=== PATIENT | female | born 2000 | race Caucasian/White ===

== ENCOUNTER 2019-10-18 11:01 | Outpatient (RCR) | payer OTHER, MEDICAID, SELFPAY ==
[2019-10-18 12:45] LABS: Hematocrit 29.6 % (37.0-47.0); Hemoglobin 9.8 g/dL (12.0-15.0)
[2019-10-18 12:57] LABS: Glucose 1 Hour PP 50gm Dose 119 mg/dL
[2019-10-18 13:38] LABS: HIV 1/2 Ab P24 Ag Result Negative (Negative)
[2019-10-19 07:31] LABS: Rapid Plasma Reagin Non-Reactive (NonReactive)
[2019-10-20] MEDS: RHO(D) IMMUNE GLOBULIN 300 MCG SYRINGE IM (16:16)
== END 2020-01-16 23:59 | disposition home or self-care (01) ==
LOC: ANHLAB 11:01
PROVIDERS: Visit Provider Obstetrics & Gynecology
DX: Z36.89 Encounter for other specified antenatal screening (principal); Z29.13 Encounter for prophylactic Rho(D) immune globulin; O36.0990 Maternal care for other rhesus isoimmunization, unspecified trimester, not applicable or unspecified; Z3A.00 Weeks of gestation of pregnancy not specified
CPT/HCPCS: 36415; 82947; 85014; 85018; 86592; 86703; 90384; 96372; G0432; J2790

== ENCOUNTER 2019-12-21 17:04 | Inpatient (IN) | payer OTHER, MEDICAID, SELFPAY ==
[2019-12-21] VITALS (51 sets, daily range): BP systolic 61–138; BP diastolic 25–90; PULSE 92–221; TEMP 36.3–36.9; O2SAT 92–100
[2019-12-21 17:32] LABS: Basophils Percent Auto 0.2 % (0.2-1.2); Eosinophils Absolute Auto 0.1 K/mm3 (0-0.3); Eosinophils Percent Auto 0.5 % (0-4.4); Hematocrit 29.8 % (37.0-47.0); Hemoglobin 9.3 g/dL (12.0-15.0); Immature Granulocyte Absolute 0.06 K/mm3 (0.00-0.031); Immature Granulocyte Percent A 0.6 % (0-0.5); Lymphocytes Absolute Auto 1.29 K/mm3 (0.9-3.2); Lymphocytes Percent Auto 11.9 % (18.3-44.2); Mean Corpuscular HGB Conc 31.2 g/dl (32-36); Mean Corpuscular Hemoglobin 25.3 pg (26-34); Mean Corpuscular Volume 81.2 fl (80-100); Mean Platelet Volume 9.8 fl (7.4-10.4); Monocytes Absolute Auto 0.9 K/mm3 (0.1-0.6); Monocytes Percent Auto 8.4 % (2.6-8.5); Neutrophils Absolute Auto 8.5 K/mm3 (1.3-6.7); Neutrophils Percent Auto 78.4 % (45.5-73.1); Platelet Count Result 293 k/mm3 (150-375); Red Blood Count 3.67 M/mm3 (4.2-5.4); Red Cell Distribution Width 14.6 % (11.5-14.5); White Blood Count 10.9 K/mm3 (4.5-10.0)
[2019-12-21] MEDS: LACTATED RINGERS 1,000 ML 125 ML IV CONT ×3 (17:39→21:19)
[2019-12-21] MEDS: OXYTOCIN 30 UNITS/NS 500 ML 30 UNITS/500 ML BAG 6 UNITS IV CONT (17:40)
--- NOTE | 2019-12-21 17:42 | LDADM ---
This patient, Jeremy Frausto, was admitted to Labor/Delivery/Recovery 107 on 12/21/19 at 17:04. Plans for labor, pain management and were discussed with patient. Patient/family oriented to hospital policies and general routines including ID bracelet, bed and alarms, visiting hours, pain management, procedures, bathroom and other care routines, personal items, smoking policy, room service/diet and guest tray routines, security routines, and visiting hours. Patient/Family are encouraged to report perceived risks to care and to ask questions if they do not understand what they are told or what they should do. See OBIX for further documentation.
--- NOTE | 2019-12-21 19:32 | WPDANESEPP ---
Anes - Eval Pre Procedure Procedure: labor epidural Date/Time: 12/21/19 19:32 Surgeon: Paulette Preop Diagnosis: Labor pain Pre Op Diagnosis: SROM Patient Data Age: 19 Gender: F Height: Weight: Last Vital Signs Temp 36.9 C 12/21/19 17:55 Pulse 117 H 12/21/19 19:31 BP 122/68 12/21/19 19:31 Pulse Ox 98 12/21/19 19:30 Allergies Allergy/AdvReac Type Severity Reaction Status Date / Time No Known Allergies Allergy Unknown Verified 03/14/19 22:45 Home Medications Medication Instructions Recorded Confirmed Type PNV cmb#95-ferrous fumarate-FA 1 tablet PO DAILY 11/26/19 12/21/19 History [] ferrous sulfate [Slow Release Iron] 140 mg PO DAILY 11/26/19 12/21/19 History promethazine 25 mg PO TID PRN 11/26/19 12/21/19 History Laboratory Tests 12/21/19 12/21/19 12/21/19 17:19 17:19 17:19 WBC 10.9 K/mm3 H K/mm3 (4.5-10.0) RBC 3.67 M/mm3 L M/mm3 (4.2-5.4) Hgb 9.3 g/dL L g/dL (12.0-15.0) Hct 29.8 % L % (37.0-47.0) MCV 81.2 fl fl (80-100) MCH 25.3 pg L pg (26-34) MCHC 31.2 g/dl L g/dl (32-36) RDW 14.6 % H % (11.5-14.5) Plt Count 293 k/mm3 k/mm3 (150-375) MPV 9.8 fl fl (7.4-10.4) Immature Gran % (Auto) 0.6 % H % (0-0.5) Neut % (Auto) 78.4 % H % (45.5-73.1) Lymph % (Auto) 11.9 % L % (18.3-44.2) [place]y % (Auto) 8.4 % % (2.6-8.5) Eos % (Auto) 0.5 % % (0-4.4) Baso % (Auto) 0.2 % % (0.2-1.2) Lymph # (Auto) 1.29 K/mm3 K/mm3 (0.9-3.2) [place] # (Auto) 0.9 K/mm3 H K/mm3 (0.1-0.6) Eos # (Auto) 0.1 K/mm3 K/mm3 (0-0.3) Baso # (Auto) 0.0 K/mm3 K/mm3 (0.0-0.1) Abs Immat Gran (auto) 0.06 K/mm3 H K/mm3 (0.00-0.031) Absolute Neuts (auto) 8.5 K/mm3 H K/mm3 (1.3-6.7) Absolute Nucleated RBC 0.0 K/mm3 K/mm3 (0.0-0.012) Nucleated RBC % 0.0 % % (0.0-0.2) RPR Pending Blood Type B Negative Antibody Screen Positive Antibody Identification Pending Antigen Identification Pending PETE, IgG Interpret Pending PETE, Poly Interpret Pending PETE, Complement Interp Pending Patient hx anesthesia problems: none Family hx anesthesia problems: none [facility] Family History Family History (Updated 11/26/19 @ 12:48 by Adis Mondragon RN) Mother Diabetes mellitus Social History Social History Smoking status: Never smoker Substance use: never Gender identity (if verbalized by the patient): Female Spiritual care concerns: No Exam Day of Procedure 12/21/19 19:32
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
[2019-12-22] VITALS (25 sets, daily range): BP systolic 69–186; BP diastolic 43–160; PULSE 92–166; RESP 16–18; TEMP 36.7–37; O2SAT 98–100
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
[2019-12-22] MEDS: PROMETHAZINE HCL 25 MG/ML AMPUL 12.5 MG IV PUSH (01:18)
[2019-12-22] MEDS: OXYTOCIN 30 UNITS/NS 500 ML 30 UNITS/500 ML BAG 125 UNITS IV CONT (01:44)
--- NOTE | 2019-12-22 03:34 | PC.NURSE ---
Patient transferred to post room #292 via wheel chair. Support person present. Oriented to unit, room, information board, rooming in, admission packet and security measures. Patient verbalizes understanding.
[2019-12-22] MEDS: DOCUSATE SODIUM 100 MG CAPSULE PO ×2 (09:46→16:30)
[2019-12-22] MEDS: POLYSACCHARIDE IRON COMPLEX 150 MG CAPSULE PO ×2 (09:47→16:29)
[2019-12-22] MEDS: IBUPROFEN 600 MG TABLET PO ×2 (09:48→20:40)
[2019-12-23 05:19] LABS: Hematocrit 26.8 % (37.0-47.0); Hemoglobin 8.2 g/dL (12.0-15.0)
--- NOTE | 2019-12-23 08:29 | PM.OBPNVD ---
OB - PN: Subj Subjective Date/time seen: 12/23/19 08:29 OB - PN: Obj Data Labs CBC & Chem 7: 12/23/19 05:12 Labs: Laboratory Results - last 24 hr 12/23/19 05:12 Hgb 8.2 L Hct 26.8 L OB - PN A/P Plan day: 1 Plan: discharge home Time Spent With Patient Time: Total time spent is greater than 50% in coordination of care (as documented) at patient's floor/unit and/or counseling patient: Review of Systems Review of Systems: All systems reviewed & are unremarkable except as noted in HPI and below Constitutional: Constitutional: Reports as per HPI Cardiovascular: Cardiovascular: Reports as per HPI Exam Const: General: comfortable Resp: Effort & Inspection: normal respiratory effort Psych: Appearance: grossly normal Affect: normal affect Attitude: cooperative
[2019-12-23 08:30] VITALS: BP 121/86; PULSE 91; RESP 16; TEMP 36.7; O2SAT 100
--- NOTE | 2019-12-23 08:30 | PM.OBDSVD ---
OB - DS: Summary OB Procedures : None OB Procedures Intrapartum: Spontaneous Vag Delivery OB Procedures: : None Time Spent with Patient Time attestation: Total time spent providing and/or coordinating discharge services: Exam Const: General: comfortable Resp: Effort & Inspection: normal respiratory effort DS: Data Data Completed and Pending Labs on day of discharge: Labs from last 24 hours 12/23/19 05:12 Hgb 8.2 L Hct 26.8 L Discharge Plan Discharge Attending physician on discharge: Halima Caldwell Discharging Clinician: Maureen Catalan Patient Disposition: Home, Self-Care Activity: pelvic rest Diet: regular Patient Instructions: Antibiotic Form Stand Alone Forms: General Discharge Information Follow-up/Referrals: Maureen Catalan, SANDOVALM [Certified Nurse Multiple Sclerosis Nurse] - 4 Weeks Discharge Medications: Continued promethazine 25 mg Tablet 25 mg PO TID PRN (Reason: Nausea) RF: 0 ferrous sulfate [Slow Release Iron] 140 mg (45 mg iron) Tablet Extended Release 140 mg PO DAILY RF: 0 PNV cmb#95-ferrous fumarate-FA [] 28 mg iron- 800 mcg Tablet 1 tablet PO DAILY RF: 0 Date of admission: 12/21/19 17:04 Primary Care Provider: UNKNOWN,DOCTOR Admitting Provider: Halima Caldwell Attending physician on admission: Halima Caldwell
[2019-12-23] MEDS: DOCUSATE SODIUM 100 MG CAPSULE PO (08:36)
[2019-12-23] MEDS: POLYSACCHARIDE IRON COMPLEX 150 MG CAPSULE PO (08:36)
--- NOTE | 2019-12-23 08:45 | PC.NURSE ---
Patient viewed the discharge video Mother & Baby Care, The First Two Weeks . Patient was given the opportunity and encouraged to ask questions. Patient verbalized understanding of information shared and has been given the mother/baby guide for home reference.
[2019-12-24 07:39] LABS: Rapid Plasma Reagin Non-Reactive (NonReactive)
[2019-12-24 08:07] VITALS: BP 118/72; PULSE 95; RESP 16; TEMP 36.8; O2SAT 99
== END 2019-12-23 10:15 | disposition home or self-care (01) | DRG 807 ==
LOC: ANHLDR 18:55 → ANHOB2 12-22 03:53
PROVIDERS: Advanced Practice Midwife; Admitting Provider Obstetrics & Gynecology; Visit Provider Obstetrics & Gynecology
DX: O76 Abnormality in fetal heart rate and rhythm complicating labor and delivery (principal); Z37.0 Single live birth; Z3A.39 39 weeks gestation of pregnancy
CPT/HCPCS: 36415; 84112; 85014; 85018; 85025; 86592; 86850; 86880; 86900; 86901; 86902; A9270; J2550; J2590; J7120

== ENCOUNTER 2021-02-04 20:05 | Emergency (ER) | payer OTHER, MEDICAID, SELFPAY ==
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
[2021-02-04 20:07] VITALS: BP 126/88; PULSE 110; RESP 18; TEMP 36.9; O2SAT 100
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
[2021-02-04] MEDS: KETOROLAC 30 MG/ML VIAL (*BKC) IM (21:59)
[2021-02-04 22:55] VITALS: BP 119/74; PULSE 84; RESP 16; O2SAT 98
== END 2021-02-04 22:55 | disposition home or self-care (01) ==
PROVIDERS: Emergency Provider Emergency Medicine; PCP Family Medicine
DX: S29.012A Strain of muscle and tendon of back wall of thorax, initial encounter (principal); S16.1XXA Strain of muscle, fascia and tendon at neck level, initial encounter; M25.561 Pain in right knee; V49.40XA Driver injured in collision with unspecified motor vehicles in traffic accident, initial encounter
CPT/HCPCS: 72040; 72070; 73502; 73562; 81025; 96372; 99284; J1885

== ENCOUNTER 2022-03-16 00:48 | Emergency (ER) | payer OTHER, MEDICAID, SELFPAY ==
[2022-03-16 01:09] VITALS: BP 147/83; PULSE 97; RESP 16; TEMP 36.6; O2SAT 100
[2022-03-16 01:20] LABS: Basophils Absolute Auto 0.1 K/mm3 (0.0-0.1); Basophils Percent Auto 0.6 % (0.2-1.2); Eosinophils Absolute Auto 0.1 K/mm3 (0-0.3); Eosinophils Percent Auto 1.3 % (0-4.4); Hematocrit 43.4 % (37.0-47.0); Hemoglobin 14.5 g/dL (12.0-15.0); Immature Granulocyte Absolute 0.01 K/mm3 (0.00-0.031); Immature Granulocyte Percent A 0.1 % (0-0.5); Lymphocytes Percent Auto 27.7 % (18.3-44.2); Mean Corpuscular HGB Conc 33.4 g/dl (32-36); Mean Corpuscular Hemoglobin 30.5 pg (26-34); Mean Corpuscular Volume 91.4 fl (80-100); Mean Platelet Volume 9.6 fl (7.4-10.4); Monocytes Absolute Auto 0.5 K/mm3 (0.1-0.6); Monocytes Percent Auto 5.8 % (2.6-8.5); Neutrophils Absolute Auto 5.8 K/mm3 (1.3-6.7); Neutrophils Percent Auto 64.5 % (45.5-73.1); Platelet Count Result 304 k/mm3 (150-375); Red Blood Count 4.75 M/mm3 (4.2-5.4)
[2022-03-16 01:33] LABS: Alanine Aminotransferase 22 U/L (6-35); Albumin Level 5.1 g/dL (3.5-5.1); Alkaline Phosphatase 96 U/L (38-126); Anion Gap 9 mmol/L (8-16); Aspartate Amino Transferase 27 U/L (14-36); Bilirubin,Total 0.5 mg/dL (0.2-1.3); Blood Urea Nitrogen 10 mg/dL (7-17); Calcium 9.4 mg/dL (8.4-10.2); Carbon Dioxide 25 mmol/L (22-30); Chloride 105 mmol/L (98-107); Estimated CRCL calculation 111 ml/min; Estimated Glomerular Filt Rate > 60; Glucose 114 mg/dL (65-110); Lipase 62 U/L (23-300); Potassium 3.9 mmol/L (3.4-5.0); Sodium 139 mmol/L (137-145)
[2022-03-16 01:47] VITALS: BP 122/79; PULSE 81; RESP 18; O2SAT 100
[2022-03-16 01:56] LABS: Appearance Urine Clear (Clear); Bilirubin Urine Negative (Negative); Color Urine Yellow (Yellow); Glucose Urine UA Negative (Negative); Ketones Urine Trace mg/dL (Negative); Leukocyte Esterase Ur Negative LEU/UL (Negative); Nitrate Urine Negative (Negative); Protein Urine Negative (Negative); Urobilinogen Urine 0.2 mg/dL (<2.0); pH Urine 6.5 (5.0-9.0)
[2022-03-16 01:57] LABS: Add Urine Microscopic? YES; Blood Urine Trace-Intact (Negative)
--- NOTE | 2022-03-16 01:57 | ED.ABDPAIN ---
HPI - Abdominal Pain General Chief Complaint: Abdominal Pain Stated Complaint: epigastric pain x3 days Time Seen by Provider: 03/16/22 01:47 History of Present Illness HPI narrative: Patient presents with epigastric pain. Reports that pain for 3 days most noted at night. Symptoms will get better with [id number] medications is came to ER for further evaluation. Patient reports currently her symptoms have nearly completely resolved. Denies any nausea or vomiting she denies any diarrhea. She does report a bloating sensation in her abdomen is attempted Gas-X without relief. Denies any urinary symptoms known sick contacts Related Data Home Medications Medication Instructions Recorded Confirmed ferrous sulfate 140 mg (45 mg 140 mg PO DAILY 11/26/19 12/21/19 iron) tablet,extended release (Slow Release Iron) vit no.95-ferrous 1 tablet PO DAILY 11/26/19 12/21/19 fumarate 28 mg-folic acid 800 mcg tablet () promethazine 25 mg tablet 25 mg PO TID PRN Nausea 11/26/19 12/21/19 Allergies Allergy/AdvReac Type Severity Reaction Status Date / Time No Known Allergies Allergy Unknown Verified 03/16/22 01:48 Review of Systems Review of Systems: CONSTITUTIONAL: Denies fever, chills, or sweats. EYES: Denies visual changes, redness, or discharge. ENT: Denies rhinorrhea, congestion, sore throat, or otalgia. CARDIOVASCULAR: Denies chest pain, palpitations, or edema. RESPIRATORY: Denies cough or dyspnea. GASTROINTESTINAL: Patient reports abdominal pain GENITOURINARY: Denies dysuria or hematuria. SKIN: Denies rash or itching. MUSCULOSKELETAL: Denies back pain, joint pain, or myalgia. NEUROLOGIC: Denies headache, numbness, dizziness, or weakness. PSYCHIATRIC: Denies anxiety or depression. All systems reviewed & are unremarkable except as noted in HPI and below PMFSH Past Medical History Medical History (Updated 03/16/22 @ 02:06 by Jeff Gray MD) Patient denies significant medical history Family History Family History Mother Diabetes mellitus Social History Social History Smoking status: Never smoker Substance use: never Gender identity (if verbalized by the patient): Female Spiritual care concerns: No Exam Narrative: GENERAL: Well-appearing, well-nourished, and in no acute distress. HEAD: Normocephalic, atraumatic. EYES: PERRLA and EOMI. ENT: Nares clear, no rhinorrhea or epistaxis. Mucous membranes moist. NECK: Supple. No masses. No JVD CHEST: Clear to auscultation. No respiratory distress. No wheezes rales or rhonchi HEART: Regular rate and rhythm. No murmur heard. Normal peripheral pulses. ABDOMEN: Minimal tenderness with deep palpation in the epigastric area soft, nondistended EXTREMITIES: Normal range of motion. No edema. SKIN: Warm, dry, no rash. NEURO: No focal deficits. Alert and oriented x3. PSYCH: Normal mood and affect. Course Vital Signs Vital signs: Vital Signs Temperature 36.6 C 03/16/22 01:09 Pulse Rate 97 03/16/22 01:09 Respiratory Rate 16 03/16/22 01:09 Blood Pressure 147/83 H 03/16/22 01:09 Pulse Oximetry 100 03/16/22 01:09 Oxygen Delivery Room Air 03/16/22 01:09 Temperature 36.6 C 03/16/22 01:09 Pulse Rate 81 03/16/22 01:47 Respiratory Rate 18 03/16/22 01:47 Blood Pressure 122/79 03/16/22 01:47 Pulse Oximetry 100 03/16/22 01:47 Oxygen Delivery Room Air 03/16/22 01:09 MDM - Abdominal Pain MDM Narrative Medical decision making narrative: H&P as above, vss, pt looks clinically well, exam with nonacute abdomen, labs clinically unremarkable, additional labs/img considered, symptomatic relief available as needed, on reevaluation pt continues to looks clinically well. Subsequent of unclear etiology may represent gastritis dns obstruction perforation, pancreatitis, cholecystitis, appendicitis,
[2022-03-16 02:00] LABS: Mucus Urine Rare /lpf; Squamous Epithelial Cell Urine Rare /hpf (Few); WBC Urine 0-3 /hpf
== END 2022-03-16 02:32 | disposition home or self-care (01) ==
LOC: ANHED 02:18
PROVIDERS: Emergency Provider Emergency Medicine; PCP Family Medicine
DX: R10.13 Epigastric pain (principal)
CPT/HCPCS: 36415; 80053; 81001; 81025; 83690; 85025; 99283

== ENCOUNTER → 2022-04-28 04:53 | Day surgery (SDC) | payer OTHER, MEDICAID, SELFPAY ==
[2022-04-22 13:18] VITALS: BMI 29.1
--- NOTE | 2022-04-22 13:23 | PC.NURSE ---
Report to the Outpatient Waiting Room, entrance under the green pavilion located off [facility], at time 0830__ on date _04/28/22_. OR Time: ___1030_. - You and your visitor will be asked to self-screen and do not enter if you have any COVID symptoms. - Only one visitor and NO children visitors are allowed at this time. - The patient visitor is requested to leave or wait in car when not with patient due to restrictions. - A mask is required within the hospital. Patients may have clear liquids (water, carbonated beverages, clear teas, apple juice) until 3 hours prior to surgery with a maximum of 20 ounces. - No food from midnight until time of surgery - Infants may have breast milk until 4 hours before surgery, formula 6 hours prior to surgery. - Children will be allowed to drink immediately following surgery. If applicable, please bring a bottle or sippy cup to assist with drinking. Juice, water, soda, and popsicles are readily available. For infants on formula, please bring formula the day of surgery. Pacifiers are allowed. Take the following medications with a SIP of water the morning of surgery: ___NEXIUM, PREDNISONE Medications to discontinue per physician NONE Date to take last dose Please no make-up, nail turkish, hairspray, perfume, deodorant, or body powder the day of surgery. No jewelry (including any body piercings) or valuables the day of surgery, leave them at home. Please take a shower or bath the night before, or the morning of, surgery with an antibacterial soap. Wear comfortable, loose fitting clothing. Children are encouraged to wear pajamas. - Jewelry must be removed prior to entering the operating room. Rings and piercings that are not removed may be cut off. - The hospital will not accept responsibility for valuables. - Please leave all valuables, including medications, at home the day of surgery. If you are going home after surgery, a licensed nascar driver must drive you home. - NO public transportation without another adult. - We recommend that an adult stay with you for 24 hours following discharge. - We also recommend that you do not drive, make important decision, drink alcoholic beverages, or take any drugs that were not prescribed by your health care provider for at least 24 hours after your discharge time. For Pediatric surgeries, we recommend two adults accompany the child home (only one inside the building at this time). Follow any additional instructions given to you from your surgeon. If you or anyone in your household have experienced Covid symptoms in the past week, please notify your surgeon or the nurse liaison at the phone number below for possible testing. Telephone instructions given to __PATIENT___and asked if any additional questions and then verbalized understanding. Patient advised to call surgeon office or pre surgery nurse liaison [phone] if any additional questions.
--- NOTE | 2022-04-27 13:55 | WPDANESEPPF ---
Anes - Initial Pre Proc Eval Procedure: Operation Date: 04/28/22 10:30 Proposed Procedures p Hysteroscopy, Endometrial Biopsy, Possible Polypectomy - Halima Caldwell MD Date/Time: 04/27/22 13:55 Surgeon: Halima Caldwell MD Pre Op Diagnosis: lesion of endometrium Patient Data Age: 22 Gender: F Height: 1.55 m Weight: 70 kg Allergies Allergy/AdvReac Type Severity Reaction Status Date / Time No Known Allergies Allergy Unknown Verified 04/22/22 12:57 Home Medications Medication Instructions Recorded Confirmed Type esomeprazole magnesium 40 mg 40 mg PO DAILY 04/22/22 04/22/22 History capsule,delayed release prednisone 2 mg tablet,delayed 4 mg PO DAILY 04/22/22 04/22/22 History release Results Review: All pre-operative results and documents have been reviewed as part of the pre-operative evaluation. [facility] Past Medical History Medical History (Updated 04/27/22 @ 13:55 by Renard Pena DO) GERD (gastroesophageal reflux disease) Family History Family History Mother Diabetes mellitus Social History Social History Smoking status: Never smoker Alcohol intake: never Substance use: never Living arrangements: with family Gender identity (if verbalized by the patient): Female Spiritual care concerns: No Anes - Eval Final PreProcedure Day of Procedure 04/27/22 13:55 Patient weight: normal Heart: regular rate and rhythm Lungs: clear to auscultation and normal air movement Airway: Mallampati scale class II Neurological: alert and oriented Last oral intake: >/= 8 hours ASA classification: II Emergent: no Anesthetic plan: proceed Anesthesia type and monitoring: general GIVS and standard monitoring Results Review: All pre-operative results and documents have been reviewed as part of the pre-operative evaluation. Informed Consent: The patient's anesthetic plan and its attendant risks and benefits were discussed with the patient/family/POA. Questions were solicited and answers provided to the satisfaction of the patient/family/POA.
== END ==
PROVIDERS: PCP Family Medicine; Visit Provider Obstetrics & Gynecology
DX: R10.13 Epigastric pain (principal); Z53.9 Procedure and treatment not carried out, unspecified reason
CPT/HCPCS: A9270; J7030

== ENCOUNTER 2022-08-14 18:34 | Emergency (ER) | payer OTHER, MEDICAID, SELFPAY ==
--- NOTE | ~2022-08-14 | CT_ITS ---
EXAMINATION: CT brain wo con DATE: 08/14/2022 22:41 INDICATION: Headache. TECHNIQUE: Computed tomography (CT) of the head was performed without intravenous contrast. The mA wa s adjusted according to patient size. Iterative reconstruction technique was employed. The dose-lengt h product was 605.33 mGy-cm. COMPARISON: None FINDINGS: There is no intracranial hemorrhage, acute infarction, or abnormal intracranial mass lesion . The ventricles are normal in size. The paranasal sinuses are clear. The mastoid air cells are addison l. IMPRESSION: 1. Normal brain. Reviewed, dictated and finalized at location A. CENTER COORDINATOR IMPRESSION: 1. Normal brain.
[2022-08-14 19:09] VITALS: BP 125/76; PULSE 89; RESP 16; TEMP 37.3; O2SAT 100
[2022-08-14 21:46] VITALS: BP 126/73; PULSE 72; RESP 14; O2SAT 100
--- NOTE | 2022-08-14 21:56 | PC.NURSE ---
patient is here with headache for four days states she stopped trying tylenol or ibuprofen because it wasnt working noted to be on cellphone while in waiting room appears comfortable and in no distress at this time
--- NOTE | 2022-08-14 22:02 | ED.HA ---
HPI - Headache General Chief Complaint: Headache Stated Complaint: migraine Time Seen by Provider: 08/14/22 21:55 History of Present Illness HPI Narrative: 22-year-old female here for evaluation of a headache over the past 4 days. Patient states that the headache did come on quite suddenly but denies maximal exertion within seconds. The headache came on while she was at rest. Since then, it has been present in the right temporal region and has been sensitive to light. She denies relief after ibuprofen, Excedrin Migraine or Tylenol. No nausea or vomiting, neck stiffness, fevers or chills, visual changes. She does have a history of migraines but states that this is more severe. Related Data Home Medications Medication Instructions Recorded Confirmed esomeprazole magnesium 40 mg 40 mg PO DAILY 04/22/22 04/22/22 capsule,delayed release prednisone 2 mg tablet,delayed 4 mg PO DAILY 04/22/22 04/22/22 release Allergies Allergy/AdvReac Type Severity Reaction Status Date / Time No Known Allergies Allergy Unknown Verified 04/22/22 12:57 Review of Systems Review of Systems: Gen.: Denies fevers or chills Eyes: Denies eye pain or visual change ENT: Denies congestion Respiratory: Denies shortness of breath or cough CV: Denies chest pain or palpitations GI: Denies abdominal pain nausea, emesis or diarrhea denies burning, urgency, frequency or hematuria Musculoskeletal: denies back pain or muscle pain Neuro: Reports headache. Denies numbness, tingling, weakness or focal weakness Skin: Denies rash Except as documented, all other systems reviewed and negative [facility] Past Medical History Medical History GERD (gastroesophageal reflux disease) Family History Family History Mother Diabetes mellitus Social History Social History Smoking status: Never smoker Alcohol intake: never Substance use: never Gender identity (if verbalized by the patient): Female Spiritual care concerns: No Exam Narrative: APPEARANCE: Well appearing, no pain in distress, well-nourished. Head: Normocephalic and atraumatic. EYES: PERRLA/EOMI, conjunctivae clear NOSE: No nasal drainage EARS: External ear normal in appearance THROAT: Oropharynx is clear. Mucous membranes are moist. NECK: Full range of motion in neck without stiffness. Supple. No adenopathy, no masses. RESPIRATORY: Airway patent, respirations nonlabored. Clear to auscultation bilaterally, no rales, rhonchi, wheezing. CARDIOVASCULAR: Regular rate and rhythm without murmurs, rubs, or gallops. ABDOMINAL: Normoactive bowel sounds. Soft, nontender, nondistended. No rebound tenderness or guarding. MUSCULOSKELETAL: Extremities are warm and well-perfused. Moves all extremities well. No edema. NEURO: Cranial nerves II through XII intact. [employer] strength equal bilaterally. Normal speech. No focal neurologic deficits. SKIN: Skin is warm and dry. No rashes. PSYCHIATRIC: Normal affect/mood. Course Vital Signs Vital signs: Vital Signs Temperature 99.1 F 08/14/22 19:09 Pulse Rate 89 08/14/22 19:09 Respiratory Rate 16 08/14/22 19:09 Blood Pressure 125/76 08/14/22 19:09 Pulse Oximetry 100 08/14/22 19:09 Oxygen Delivery Room Air 08/14/22 19:09 Temperature 99.1 F 08/14/22 19:09 Pulse Rate 72 08/14/22 21:46 Respiratory Rate 14 08/14/22 21:46 Blood Pressure 126/73 08/14/22 21:46 Pulse Oximetry 100 08/14/22 21:46 Oxygen Delivery Room Air 08/14/22 19:09 MDM - Headache MDM Narrative Medical decision making narrative: This patient presents with a headache most consistent with benign headache from either tension type headache vs migraine. No headache red flags. Neurologic exam without evidence of meningismus, AMS, focal neurologic findings so doubt meningitis, en
[2022-08-14] MEDS: diphenhydrAMINE HCl INJ 50 MG/ML VIAL 12.5 MG IV PUSH (22:18)
[2022-08-14] MEDS: PROCHLORPERAZINE EDISYLATE 10 MG/2 ML VIAL IV PUSH (22:18)
[2022-08-14 22:20] LABS: Basophils Percent Auto 0.5 % (0.2-1.2); Eosinophils Absolute Auto 0.1 K/mm3 (0-0.3); Eosinophils Percent Auto 0.6 % (0-4.4); Hematocrit 41.9 % (37.0-47.0); Hemoglobin 14.5 g/dL (12.0-15.0); Immature Granulocyte Absolute 0.02 K/mm3 (0.00-0.031); Immature Granulocyte Percent A 0.3 % (0-0.5); Lymphocytes Absolute Auto 1.65 K/mm3 (0.9-3.2); Lymphocytes Percent Auto 20.9 % (18.3-44.2); Mean Corpuscular HGB Conc 34.6 g/dl (32-36); Mean Corpuscular Hemoglobin 31.3 pg (26-34); Mean Corpuscular Volume 90.3 fl (80-100); Mean Platelet Volume 9.5 fl (7.4-10.4); Monocytes Absolute Auto 0.5 K/mm3 (0.1-0.6); Monocytes Percent Auto 6.3 % (2.6-8.5); Neutrophils Absolute Auto 5.6 K/mm3 (1.3-6.7); Neutrophils Percent Auto 71.4 % (45.5-73.1); Platelet Count Result 341 k/mm3 (150-375); Red Blood Count 4.64 M/mm3 (4.2-5.4); Red Cell Distribution Width 11.9 % (11.5-14.5); White Blood Count 7.9 K/mm3 (4.5-10.0)
[2022-08-14 22:29] LABS: Alanine Aminotransferase 19 U/L (6-35); Albumin Level 4.8 g/dL (3.5-5.1); Alkaline Phosphatase 83 U/L (38-126); Anion Gap 8 mmol/L (8-16); Aspartate Amino Transferase 26 U/L (14-36); Bilirubin,Total 0.5 mg/dL (0.2-1.3); Blood Urea Nitrogen 9 mg/dL (7-17); Calcium 9.3 mg/dL (8.4-10.2); Carbon Dioxide 26 mmol/L (22-30); Chloride 106 mmol/L (98-107); Estimated CRCL calculation 125 ml/min; Estimated Glomerular Filt Rate > 60; Glucose 102 mg/dL (65-110); Potassium 3.7 mmol/L (3.4-5.0); Sodium 140 mmol/L (137-145)
== END 2022-08-15 00:29 | disposition home or self-care (01) ==
PROVIDERS: Emergency Provider Physician Assistant; PCP Family Medicine
DX: R51.9 Headache, unspecified (principal)
CPT/HCPCS: 36415; 70450; 80053; 85025; 96374; 96375; 99284; J0780; J1200

== ENCOUNTER 2023-01-03 13:15 | Emergency (ER) | payer BC, OTHER, SELFPAY ==
[2023-01-03 13:47] VITALS: BP 121/70; PULSE 89; RESP 12; TEMP 36.8; O2SAT 100
[2023-01-03 13:49] LABS: Basophils Percent Auto 0.3 % (0.2-1.2); Eosinophils Percent Auto 0.4 % (0-4.4); Hematocrit 38.2 % (37.0-47.0); Hemoglobin 13.1 g/dL (12.0-15.0); Immature Granulocyte Absolute 0.01 K/mm3 (0.00-0.031); Immature Granulocyte Percent A 0.1 % (0-0.5); Lymphocytes Absolute Auto 0.75 K/mm3 (0.9-3.2); Lymphocytes Percent Auto 10.1 % (18.3-44.2); Mean Corpuscular HGB Conc 34.3 g/dl (32-36); Mean Corpuscular Hemoglobin 30.9 pg (26-34); Mean Corpuscular Volume 90.1 fl (80-100); Monocytes Absolute Auto 0.7 K/mm3 (0.1-0.6); Neutrophils Percent Auto 80.1 % (45.5-73.1); Platelet Count Result 286 k/mm3 (150-375); Red Blood Count 4.24 M/mm3 (4.2-5.4); Red Cell Distribution Width 11.9 % (11.5-14.5); White Blood Count 7.5 K/mm3 (4.5-10.0)
[2023-01-03 14:05] LABS: Alanine Aminotransferase 16 U/L (6-35); Albumin Level 4.3 g/dL (3.5-5.1); Alkaline Phosphatase 79 U/L (38-126); Anion Gap 10 mmol/L (8-16); Aspartate Amino Transferase 22 U/L (14-36); Bilirubin,Total 0.6 mg/dL (0.2-1.3); Blood Urea Nitrogen 7 mg/dL (7-17); Calcium 9.1 mg/dL (8.4-10.2); Carbon Dioxide 22 mmol/L (22-30); Chloride 101 mmol/L (98-107); Estimated CRCL calculation 153 ml/min; Estimated Glomerular Filt Rate > 60; Glucose 83 mg/dL (65-110); Lipase 33 U/L (23-300); Potassium 3.9 mmol/L (3.4-5.0); Sodium 133 mmol/L (137-145)
[2023-01-03 14:10] LABS: Appearance Urine Cloudy (Clear); Bacteria Urine 3+ /hpf; Bilirubin Urine 1+ (Negative); Color Urine Dark Yellow (Yellow); Glucose Urine UA Negative (Negative); Ketones Urine 3+ mg/dL (Negative); Leukocyte Esterase Ur 2+ LEU/UL (Negative); Need Manual Microscopic Reviewed; Nitrate Urine Negative (Negative); Protein Urine Trace mg/dL (Negative); Specific Grav Ur 1.025 (1.001-1.035); Squamous Epithelial Cell Urine Many /hpf (Few); WBC Urine >100 /hpf; pH Urine 5.5 (5.0-9.0)
[2023-01-03 14:22] LABS: Add Urine Microscopic? YES
[2023-01-03] MEDS: SODIUM CHLORIDE 0.9% IV 1,000 ML 999 ML IV CONT (16:05)
[2023-01-03] MEDS: ONDANSETRON INJ 4 MG/2 ML VIAL IV PUSH (16:05)
[2023-01-03] MEDS: LACTATED RINGERS 1,000 ML 999 ML IV CONT (16:30)
--- NOTE | 2023-01-03 17:43 | ED.NAVMDI ---
HPI - Nausea/Vomiting/Diarrhea General Chief complaint: Nausea/Vomiting/Diarrhea Stated complaint: low back pain, N/V Time Seen by Provider: 01/03/23 15:36 History of Present Illness HPI Narrative: 22-year-old female who is 15 weeks presenting here with low back pain, nausea and vomiting and cannot keep anything down. Chills but no fever. Related Data Home Medications Medication Instructions Recorded Confirmed esomeprazole magnesium 40 mg 40 mg PO DAILY 04/22/22 04/22/22 capsule,delayed release prednisone 2 mg tablet,delayed 4 mg PO DAILY 04/22/22 04/22/22 release Allergies Allergy/AdvReac Type Severity Reaction Status Date / Time No Known Allergies Allergy Unknown Verified 01/03/23 15:34 Review of Systems Review of Systems: CONST: No fever. HEENT: No sore throat C/V: No chest pain RESP: No cough GI: Nausea and vomiting : Dysuria. M/S: Low back pain SKIN: No rash. NEURO: [No headache or focal numbness or weakness] PSYCH: [No depression] [facility] Past Medical History Medical History GERD (gastroesophageal reflux disease) Family History Family History Mother Diabetes mellitus Social History Social History Smoking status: Never smoker Alcohol intake: never Substance use: never Living arrangements: with family Gender identity (if verbalized by the patient): Female Spiritual care concerns: No Exam Narrative: EXAMINATION OF ORGAN SYSTEMS/BODY AREAS: Constitutional: Vital signs per nursing GENERAL:[No acute distress, non-toxic appearing.] HEAD: Normal with no signs of head trauma. EYES: EOMI, conjunctiva normal ENT: Hearing grossly intact LUNGS: Nonlabored breathing. HEART: [Regular rate and rhythm] ABD: [Soft], [nontender to palpation] BACK: No CVA tenderness EXT: Normal range of motion SKIN: [No rashes or lesions.] NEURO: [Alert and oriented x 3. No gross focal sensory or strength deficits.] PSYCH: Normal affect Course Vital Signs Vital signs: Vital Signs Temperature 98.3 F 01/03/23 13:47 Pulse Rate 89 01/03/23 13:47 Respiratory Rate 12 01/03/23 13:47 Blood Pressure 121/70 01/03/23 13:47 Pulse Oximetry 100 01/03/23 13:47 Oxygen Delivery Room Air 01/03/23 13:47 Temperature 98.3 F 01/03/23 13:47 Pulse Rate 89 01/03/23 13:47 Respiratory Rate 12 01/03/23 13:47 Blood Pressure 121/70 01/03/23 13:47 Pulse Oximetry 100 01/03/23 13:47 Oxygen Delivery Room Air 01/03/23 13:47 MDM - Nausea/Vomiting/Diarrhea MDM Narrative Medical decision making narrative: 22 year-old patient presenting with low back pain, nausea, and urinary symptoms consistent with UTI +/- pyelonephritis. Urinalysis is obtained and positive for signs of infection. Urine culture sent. Patient started on ceftriaxone here, she did not like Reglan in the past and has done well with Zofran, we had shared decision making and discussed controversy over Zofran in and we did feel risks outweigh benefits. On reevaluation, she is feeling much better, she did tolerate p.o. here without issues and would like to go home. Strongly advised to return for any increasing or worsening pain, fevers or vomiting. They expressed understanding of instructions and is discharged in stable condition. Lab Data 01/03/23 13:42 01/03/23 13:42 Labs: Lab Results 01/03/23 01/03/23 Range/Units 13:41 13:42 WBC 7.5 (4.5-10.0) K/mm3 RBC 4.24 (4.2-5.4) M/mm3 Hgb 13.1 (12.0-15.0) g/dL Hct 38.2 (37.0-47.0) % MCV 90.1 (80-100) fl MCH 30.9 (26-34) pg MCHC 34.3 (32-36) g/dl RDW 11.9 (11.5-14.5) % Plt Count 286 (150-375) k/mm3 MPV 9.0 (7.4-10.4) fl Immature Gran % (Auto) 0.1 (0-0.5) % Neut % (Auto) 80.1 H (45.5-73.1) % Lymph % (Auto)
[2023-01-03 19:30] VITALS: BP 103/63; PULSE 82; RESP 18; O2SAT 100
== END 2023-01-03 19:31 | disposition home or self-care (01) ==
PROVIDERS: Emergency Provider Emergency Medicine; PCP Family Medicine
DX: O21.9 Vomiting of pregnancy, unspecified (principal); O23.42 Unspecified infection of urinary tract in pregnancy, second trimester; N39.0 Urinary tract infection, site not specified; K21.9 Gastro-esophageal reflux disease without esophagitis; O99.612 Diseases of the digestive system complicating pregnancy, second trimester; Z3A.15 15 weeks gestation of pregnancy
CPT/HCPCS: 36415; 80053; 81001; 81025; 83690; 84702; 85025; 87086; 87088; 96361; 96365; 96375; 99284; J0131; J0696; J2405; J7030; J7120

== ENCOUNTER 2024-02-06 11:26 | Emergency (ER) | payer OTHER, SELFPAY ==
[2024-02-06 11:38] VITALS: BP 118/78; PULSE 84; RESP 16; TEMP 37.1; O2SAT 100
--- NOTE | 2024-02-06 12:03 | ED.URI ---
HPI - URI/Sore Throat General Chief Complaint: Upper Respiratory Infection Stated Complaint: Sore Throat/Bodyaches Time Seen by Provider: 02/06/24 12:04 Source: patient Mode of arrival: ambulatory Limitations: no limitations History of Present Illness HPI Narrative: 23 yo F presents with c/o sore throat, congestion for 4 to 5 days. reports cough for about 2 wks. Seen at urgent care, no testing done, and given augmentin for upper resp infection. since starting medications states that cough improved but feels worse with fatigue, bodyaches and headache. All systems reviewed and negative except as noted above. Related Data Home Medications Medication Instructions Recorded Confirmed esomeprazole magnesium 40 mg 40 mg PO DAILY 04/22/22 02/06/24 capsule,delayed release amoxicillin 875 mg-potassium 1 tablet PO BID 02/06/24 02/06/24 clavulanate 125 mg tablet benzonatate 200 mg capsule 200 mg PO TID 02/06/24 02/06/24 Allergies Allergy/AdvReac Type Severity Reaction Status Date / Time No Known Allergies Allergy Unknown Verified 02/06/24 11:34 Review of Systems Review of Systems: CONSTITUTIONAL: Denies fever, chills, or sweats. Reports fatigue. EYES: Denies visual changes, redness, or discharge. ENT: Reports rhinorrhea, congestion, sore throat. Denies otalgia. CARDIOVASCULAR: Denies chest pain, palpitations, or edema. RESPIRATORY: Denies cough or dyspnea. GASTROINTESTINAL: Denies abdominal pain, nausea, vomiting, or diarrhea. GENITOURINARY: Denies dysuria or hematuria. SKIN: Denies rash or itching. MUSCULOSKELETAL: Denies back pain, joint pain. Reports myalgia. NEUROLOGIC: Denies headache, numbness, or weakness. PSYCHIATRIC: Denies anxiety or depression. All other systems reviewed are negative, except as documented in HPI. [facility] Past Medical History Medical History GERD (gastroesophageal reflux disease) Family History Family History Mother Diabetes mellitus Social History Social History Smoking status: Never smoker Alcohol intake: never Substance use: never Living arrangements: with family Gender identity (if verbalized by the patient): Female Spiritual care concerns: No Comments At time of signature, agree with nursing past medical, surgical, social and family history. There is no relevant family history pertinent to the presenting complaint. Exam Narrative: GENERAL: This is a well-nourished, well-developed patient, in no apparent distress. HEAD: normocephalic, atraumatic. EYES: PERRL. Sclera clear/white. Vision is grossly intact. EARS: External ears normal, auditory canals clear and without drainage, TMs normal without perforation. Hearing grossly intact. NOSE: External nose normal with no obvious nasal discharge, nares without redness, no rhinorrhea. THROAT: Mucous membranes moist, posterior pharynx clear. NECK: Neck supple, non-tender without lymphadenopathy, masses or thyromegaly. CARDIOVASCULAR: Regular rate and rhythm without murmurs, gallops, or rubs. RESPIRATORY: Clear to auscultation. Breath sounds equal bilaterally. No wheezes, rales, or rhonchi. SKIN: warm, Dry, intact with no suspicious lesions or rash, good texture and turgor. NEURO: awake, alert, and oriented to person, place and time. There were no obvious focal neurologic abnormalities. EXTREMITIES: No joint tenderness, effusion, or edema noted. Course Course Level of Care: Express Care Visit Vital Signs Vital signs: Vital Signs Temperature 37.1 C 02/06/24 11:38 Pulse Rate 84 02/06/24 11:38 Respiratory Rate 16 02/06/24 11:38 Blood Pressure 118/78 02/06/24 11:38 Pulse Oximetry 100 02/06/24 11:38 Oxygen Delivery Room Air 02/06/24 11:38 Temperature 37.1 C 02/06/24 11:38 Pulse Rate 84 02/06/24 11:38 Respiratory Rate 16
== END 2024-02-06 12:39 | disposition home or self-care (01) ==
PROVIDERS: Emergency Provider Nurse Practitioner Family; PCP Internal Medicine
DX: J06.9 Acute upper respiratory infection, unspecified (principal); R05.9 Cough, unspecified; Z20.822 Contact with and (suspected) exposure to COVID-19; K21.9 Gastro-esophageal reflux disease without esophagitis
CPT/HCPCS: 87426; 87804; 99213; G0463